=== PATIENT | female | born 1985 | race African-American/Black ===

== ENCOUNTER 2016-11-16 11:05 | Emergency (ER) | payer SELFPAY | END 2016-11-16 11:18 | disposition left against medical advice (07) | LOC: ERS 11:05 | DX: Z53.21 Procedure and treatment not carried out due to patient leaving prior to being seen by health care provider (principal) ==

== ENCOUNTER 2017-01-20 16:52 | Emergency (ER) | payer SELFPAY, OTHER ==
[2017-01-20] MEDS ORDERED: Ketorolac Tromethamine 60 MG/2 ML VIAL ONE (17:47)
[2017-01-20 17:48] LABS: Bilirubin Negative (Negative); Blood, Urine Small (Negative); Glucose, Urine (Dipstick) >=1000 mg/dL (Negative); Ketone, Urine Negative (Negative); Nitrite Negative (Negative); Protein, Urine (Dipstick) 30 mg/dL (Neg-Trace); Urobilinogen 0.2 mg/dL (0.2-1.0)
[2017-01-20 17:51] LABS: Bacteria/HPF 1+ HPF (None Seen); Hyaline Casts/LPF 0-3 HYALINE CAST LPF (0-3 Hyaline); Squamous Epithelial 0-3 HPF (0-3); WBC/HPF 0-3 HPF (0-3)
[2017-01-20 18:29] LABS: #Eosinphils 0.2 thou/uL (0.0-0.7); #Lymphocytes 2.9 thou/uL (1.20-3.40); #Monocytes 0.5 thou/uL (0.11-0.59); #Neutrophils 5.8 thou/uL (1.40-6.50); %Basophils 0.5 % (0.0-1.0); %Eosinophils 1.7 % (0.0-10.0); %Monocytes 5.5 % (0.0-10.0); Hematocrit 42.6 % (36.0-47.0); Mean Platelet Volume 7.6 fL (7.4-10.4); Red Blood Cell (RBC) Count 4.69 mill/uL (4.20-5.40); White Blood Cell (WBC) Count 9.4 thou/uL (4.8-10.8)
[2017-01-20 18:48] LABS: ALT (SGPT) 18 U/L (8-55); AST (SGOT) 14 U/L (5-34); Alkaline Phosphatase 117 U/L (40-150); Anion Gap 11 mmol/L (10-20); BUN (Urea Nitrogen) 8 mg/dL (7.0-18.7); Bilirubin, Total 0.3 mg/dL (0.2-1.2); Calc. Creatinine Clearance 0 mL/min (70-130); Calcium 9.7 mg/dL (7.8-10.44); Carbon Dioxide 25 mmol/L (22-29); Chloride 102 mmol/L (98-107); Estimated GFR-MDRD 90; Globulin 3.3 g/dL (2.4-3.5); Protein, Total 7.4 g/dL (6.0-8.3)
== END 2017-01-20 19:44 | disposition home or self-care (01) ==
LOC: ERS 16:52
DX: R31.9 Hematuria, unspecified (principal); R80.9 Proteinuria, unspecified; R10.30 Lower abdominal pain, unspecified; E11.9 Type 2 diabetes mellitus without complications; F17.210 Nicotine dependence, cigarettes, uncomplicated; Z79.84 Long term (current) use of oral hypoglycemic drugs
CPT/HCPCS: 36415; 80053; 81003; 81015; 81025; 85025; 96372; J1885

== ENCOUNTER 2017-03-01 22:49 | Emergency (ER) | payer OTHER, SELFPAY ==
[2017-03-01 23:25] LABS: Bilirubin Negative (Negative); Blood, Urine Small (Negative); Clarity CLEAR (Clear); Glucose, Urine (Dipstick) >=1000 mg/dL (Negative); Leukocyte Negative (Negative); Nitrite Negative (Negative); Protein, Urine (Dipstick) Negative (Neg-Trace); Specific Gravity, Urine 1.034 (1.002-1.036); pH, Urine 6.5 (5.0-9.0)
[2017-03-01 23:26] LABS: Bacteria/HPF Rare-Few HPF (None Seen); Hyaline Casts/LPF 0-3 HYALINE CAST LPF (0-3 Hyaline); Squamous Epithelial 0-3 HPF (0-3); WBC/HPF 0-3 HPF (0-3)
[2017-03-01 23:36] LABS: #Basophils 0.1 thou/uL (0.0-0.2); #Eosinphils 0.1 thou/uL (0.0-0.7); #Lymphocytes 3.1 thou/uL (1.20-3.40); #Monocytes 0.5 thou/uL (0.11-0.59); #Neutrophils 4.5 thou/uL (1.40-6.50); %Basophils 0.8 % (0.0-1.0); %Eosinophils 1.6 % (0.0-10.0); %Lymphocytes 37.5 % (21.0-51.0); %Monocytes 5.9 % (0.0-10.0); %Neutrophils 54.2 % (42.0-75.0); Hemoglobin 13.9 g/dL (12.0-16.0); Mean Platelet Volume 7.7 fL (7.4-10.4); Platelet Count 300 thou/uL (130-400); Red Blood Cell (RBC) Count 4.63 mill/uL (4.20-5.40); White Blood Cell (WBC) Count 8.2 thou/uL (4.8-10.8)
[2017-03-01 23:49] LABS: ALT (SGPT) 19 U/L (8-55); AST (SGOT) 17 U/L (5-34); Albumin 3.9 g/dL (3.5-5.0); Alkaline Phosphatase 117 U/L (40-150); Anion Gap 15 mmol/L (10-20); BUN (Urea Nitrogen) 11 mg/dL (7.0-18.7); Bilirubin, Total 0.2 mg/dL (0.2-1.2); Calc. Creatinine Clearance 0 mL/min (70-130); Calcium 9.7 mg/dL (7.8-10.44); Carbon Dioxide 22 mmol/L (22-29); Chloride 101 mmol/L (98-107); Estimated GFR-MDRD 71; Globulin 3.7 g/dL (2.4-3.5); Glucose 369 mg/dL (70-105); Potassium 4.1 mmol/L (3.5-5.1); Protein, Total 7.6 g/dL (6.0-8.3); Sodium 134 mmol/L (136-145)
[2017-03-02] MEDS ORDERED: Ketorolac Tromethamine 30 MG/ML VIAL ONE (01:18)
== END 2017-03-02 01:29 | disposition home or self-care (01) ==
LOC: ERS 22:49
DX: R10.9 Unspecified abdominal pain (principal); E11.65 Type 2 diabetes mellitus with hyperglycemia; F17.210 Nicotine dependence, cigarettes, uncomplicated
CPT/HCPCS: 36415; 36416; 80053; 81003; 81015; 85025; 96372; 99406; J1885

== ENCOUNTER 2017-11-13 08:23 | Emergency (ER) | payer OTHER ==
[2017-11-13] MEDS ORDERED: Ketorolac Tromethamine 60 MG/2 ML VIAL ONE (09:31)
== END 2017-11-13 10:02 | disposition home or self-care (01) ==
LOC: ERS 08:23
DX: M54.5 Low back pain (principal); E11.9 Type 2 diabetes mellitus without complications; F17.210 Nicotine dependence, cigarettes, uncomplicated; Z79.4 Long term (current) use of insulin
CPT/HCPCS: 96372; J1885

== ENCOUNTER 2018-04-20 14:58 | Observation (INO) | payer OTHER ==
[2018-04-20 15:26] LABS: #Basophils 0.1 thou/uL (0.0-0.2); #Eosinphils 0.2 thou/uL (0.0-0.7); #Lymphocytes 3.8 thou/uL (1.20-3.40); #Monocytes 0.6 thou/uL (0.11-0.59); %Basophils 0.6 % (0.0-1.0); %Eosinophils 1.5 % (0.0-10.0); %Lymphocytes 35.5 % (21.0-51.0); %Monocytes 5.8 % (0.0-10.0); %Neutrophils 56.6 % (42.0-75.0); Mean Corpuscular HGB CONC 32.9 g/dL (32.0-36.0); Mean Corpuscular Hemoglobin 29.4 pg (27.0-31.0); Mean Corpuscular Volume 89.3 fL (78.0-98.0); Mean Platelet Volume 7.4 fL (7.4-10.4); Platelet Count 356 thou/uL (130-400); Red Blood Cell (RBC) Count 4.43 mill/uL (4.20-5.40); White Blood Cell (WBC) Count 10.6 thou/uL (4.8-10.8)
[2018-04-20 15:45] LABS: ALT (SGPT) 17 U/L (8-55); AST (SGOT) 14 U/L (5-34); Albumin 4.3 g/dL (3.5-5.0); Alkaline Phosphatase 105 U/L (40-150); Anion Gap 9 mmol/L (10-20); BUN (Urea Nitrogen) 12 mg/dL (7.0-18.7); Bilirubin, Total 0.2 mg/dL (0.2-1.2); CK (CPK) 89 U/L (29-168); Calc. Creatinine Clearance 0 mL/min (70-130); Carbon Dioxide 28 mmol/L (22-29); Chloride 102 mmol/L (98-107); Estimated GFR-MDRD Greater than 90; Globulin 2.7 g/dL (2.4-3.5); Glucose 189 mg/dL (70-105); Lipase 40 U/L (8-78); Potassium 4.1 mmol/L (3.5-5.1); Sodium 135 mmol/L (136-145)
--- NOTE | 2018-04-20 16:02 | RAD ---
CHEST ONE VIEW: HISTORY: Chest pain. COMPARISON: None. FINDINGS: The lungs are clear. No pneumothorax or effusion. The cardiac silhouette and mediastinal contour ar e within normal limits. IMPRESSION: No acute intrathoracic abnormality. POS: [facility]
[2018-04-20] MEDS ORDERED: Nitroglycerin 0.4 MG TAB 1 EACH ONE (16:55)
[2018-04-20] MEDS ORDERED: Aspirin 325 MG TAB ONE ×2 (16:55→17:06)
--- NOTE | 2018-04-20 17:13 | ULT ---
RIGHT UPPER QUADRANT ULTRASOUND: 04/20/18 HISTORY: Right upper quadrant pain. Real time imaging of the right upper quadrant demonstrates a normal appearing gallbladder. The common duct is in the 2 mm range. The visualized liver parenchyma shows no focal findings. The liver measur es 15 cm in length. It does appear to be of mild increased echogenicity. The pancreas is partially obscured. Right kidney is within normal limits of size and not obstructed. IMPRESSION: No evidence of gallstones. Suggestion of possible mild fatty change of the liver. POS: [facility]
[2018-04-20] MEDS ORDERED: Ondansetron PF 4 MG/2 ML Vial IVP PRN (18:59)
[2018-04-20] MEDS ORDERED: Ondansetron ODT 4 MG TAB SL PRN (18:59)
[2018-04-20 19:03] LABS: Troponin I Less than 0.010 ng/mL (< 0.028)
[2018-04-20 20:11] VITALS: BMI 31.8
[2018-04-20] MEDS ORDERED: Dextrose 50% Abboject 50 ML SYRINGE SLOW IVP PRN (20:38)
[2018-04-20] MEDS ORDERED: Dextrose 5% in Water 1,000 ML IV PRN (20:38)
[2018-04-20] MEDS: HumaLOG 300 UNITS/3 ML VIAL SC PRN (21:41)
[2018-04-20 21:50] LABS: Troponin I Less than 0.010 ng/mL (< 0.028)
--- NOTE | 2018-04-21 03:40 | HP ---
PRIMARY CARE DOCTOR: Dr. Maria Eugenia Soto. CODE STATUS: Full code. TIME OF EVALUATION: 8 p.m. CHIEF COMPLAINT: Chest pain. HISTORY OF PRESENT ILLNESS: A 33-year-old female patient with past medical history of diabetes, presenting to ER complaining of chest pain, it was on the left side. The patient has pain on and off for the past 2 days, when it is severe, to be 9/ 10 with no clear triggers, no alleviating factors, although the patient reported occasionally the pain is mostly in the right upper quadrant and seems to be like a colicky like pain. Symptoms started insidiously and has been slowly getting worse. REVIEW OF SYSTEMS: CONSTITUTIONAL: No fever, chills, or generalized weakness. RESPIRATORY: No cough, sputum production, or shortness of breath. CARDIOVASCULAR: The patient has chest pain as described in the HPI. No palpitation. GASTROINTESTINAL: No nausea. No vomiting, diarrhea, or abdominal pain. [employer]: No dizziness, headache, or feeling lightheaded. GENITOURINARY: No burning on urination. EXTREMITIES: No leg swelling. All other systems were reviewed and negative except for the findings mentioned above. PAST MEDICAL HISTORY: The patient has a history of diabetes type 2. SURGICAL HISTORY: Lumpectomy of the left breast, x2, and hysterectomy. PSYCH HISTORY: No previous psych history. SOCIAL HISTORY: The patient is lives at home, drinks socially twice a month. No drug use. Smoke cigarettes on a daily basis. KNOWN ALLERGIES: No known drug allergies. FAMILY HISTORY: Reviewed and noncontributory for current presentation REPORTED MEDICATIONS: 1. Metformin. 2. Lantus. 3. Naprosyn. PHYSICAL EXAMINATION: VITAL SIGNS: On presentation, blood pressure was 130/80 with heart rate 84, respiratory rate was 18, pain was 9/10, oxygen saturation was 100 on room air. GENERAL APPEARANCE: She is alert, oriented, not in acute distress. HEENT: Eyes, normal conjunctivae. Moist oral mucosa. Anicteric. No JVD. RESPIRATORY: Bilateral air entry. No rales. No wheezes. Symmetric expansion. CARDIOVASCULAR: Normal rate, regular rhythm. No murmurs. No gallops. No edema. ABDOMEN: Soft. Normal bowel sounds. MUSCULOSKELETAL: Baseline range of motion and strength. No tenderness. SKIN: Warm and intact. No pallor. No rash. No redness. Peripheral pulses are present. Capillary refill seems to intact. NEUROLOGIC: No evidence of any new focal weakness. Baseline speech. Cranial nerves seems to be intact. PSYCHIATRIC: The patient is in good mood. No anxiety. Optimal judgment. LABORATORY DATA: EKG was reviewed. The patient has normal sinus rhythm with a rate of 90, WV 152, QRS 78, and QT corrected 164. Chest x-ray was reviewed. The patient has no acute intrathoracic abnormalities. An abdominal ultrasound was done. The patient has no evidence of gallstone, suggestion of possible mild fatty changes of the liver. Labs were done. The patient has white count 10.6, hemoglobin 13, MCV 89, platelet count 259. Chemistry; sodium 135, potassium 4.1, chloride 102, carbon dioxide 20, anion gap 9, BUN 12, creatinine 0.84, GFR was greater than 90, glucose _ the repeat one 338, calcium 10.0, total bilirubin 0.2. LFTs were negative. Troponin was negative x3. Albumin 4.3, lipase 40. ASSESSMENT AND PLAN: The patient will be placed in the hospital with following medical problems: 1. Chest pain, rule out acute coronary syndrome. The patient had three normal troponins and send the patient for stress test in the morning. This is to be discussed with therapist. The patient has been diabetic for 12 years, monitor on tele. 2. Uncontrolled diabetes. The patient has blood sugar came up to 338. We will reconcile home medications. Place the patient on sliding scale. 3. Deep venous thrombosis prophylaxis. 4. Hyponatremia with sodium 135, this is mild, no need for any acute intervention at this point. Job ID: [id number] [facility]
[2018-04-21] MEDS: Acetaminophen 325 MG TAB PO PRN ×2 (04:22→14:19)
[2018-04-21 04:59] LABS: #Eosinphils 0.1 thou/uL (0.0-0.7); #Lymphocytes 2.9 thou/uL (1.20-3.40); #Monocytes 0.6 thou/uL (0.11-0.59); #Neutrophils 4.6 thou/uL (1.40-6.50); %Basophils 0.5 % (0.0-1.0); %Eosinophils 1.7 % (0.0-10.0); %Lymphocytes 35.2 % (21.0-51.0); %Monocytes 6.8 % (0.0-10.0); %Neutrophils 55.8 % (42.0-75.0); Hemoglobin 13.2 g/dL (12.0-16.0); Mean Corpuscular HGB CONC 31.9 g/dL (32.0-36.0); Mean Corpuscular Hemoglobin 29.2 pg (27.0-31.0); Mean Corpuscular Volume 91.7 fL (78.0-98.0); Mean Platelet Volume 7.5 fL (7.4-10.4); Platelet Count 329 thou/uL (130-400); RBC Distribution Width 12.9 % (11.5-14.5); Red Blood Cell (RBC) Count 4.51 mill/uL (4.20-5.40); White Blood Cell (WBC) Count 8.3 thou/uL (4.8-10.8)
[2018-04-21 05:23] LABS: Anion Gap 10 mmol/L (10-20); BUN (Urea Nitrogen) 11 mg/dL (7.0-18.7); Calc. Creatinine Clearance 139 mL/min (70-130); Calcium 8.9 mg/dL (7.8-10.44); Carbon Dioxide 25 mmol/L (22-29); Chloride 104 mmol/L (98-107); Estimated GFR-MDRD Greater than 90; Glucose 287 mg/dL (70-105); Potassium 4.4 mmol/L (3.5-5.1); Sodium 135 mmol/L (136-145)
[2018-04-21] MEDS ORDERED: Lisinopril 2.5 MG TAB PO SCH (09:00)
[2018-04-21] MEDS ORDERED: Enoxaparin Sodium 40 MG/0.4 ML SYRINGE SC SCH ×2 (09:00)
[2018-04-21] MEDS ORDERED: Aspirin 325 mg Enteric Coated Tablet PO SCH (09:00)
[2018-04-21] MEDS ORDERED: ISOVUE-370 76%-LOCM 1 ML ONE (10:14)
[2018-04-21] MEDS: HumaLOG 300 UNITS/3 ML VIAL SC PRN ×2 (12:46→17:23)
--- NOTE | 2018-04-21 17:36 | PDOC.PN ---
- Subjective Encounter Start Date: 04/21/18 Encounter Start Time: 11:00 Pt seen for followup re; chest pain. Reports on and off right-sided chest pain. - Objective Resuscitation Status - Order Detail: 04/20/18 20:38 Resuscitation Status Routine Resuscitation Status: FULL: Full Resuscitation Vital Signs & Weight: Vital Signs (12 hours) Temp Pulse Resp BP Pulse Ox 04/21/18 15:56 97.6 F 81 16 117/74 100 04/21/18 11:20 98.0 F 78 16 107/82 97 04/21/18 07:36 97.9 F 80 16 118/61 96 Weight Weight 185 lb 12.8 oz I&O: 04/20/18 04/21/18 04/22/18 06:59 06:59 06:59 Intake Total 750 Balance 750 Result Diagrams: 04/21/18 04:31 04/21/18 04:31 Additional Labs: Accuchecks 04/21/18 04/21/18 04/20/18 17:01 11:24 21:00 POC Glucose 237 H 271 H 338 H Phys Exam - Physical Examination Obese HEENT: moist MMs Neck: supple Respiratory: clear to auscultation bilateral Cardiovascular: RRR Gastrointestinal: soft Neurological: moves all 4 limbs Psychiatric: normal affect Dx/Plan (1) Chest pain Code(s): R07.9 - CHEST PAIN, UNSPECIFIED Status: Acute Comment: pt had normal stress test; check d-dimer to r/o PE (2) Hyperglycemia due to type 2 diabetes mellitus Code(s): E11.65 - TYPE 2 DIABETES MELLITUS WITH HYPERGLYCEMIA Status: Chronic Comment: resume lantus insulin - Plan * . Review of Systems - Review of Systems Respiratory: negative: Cough, Shortness of Breath, SOB with Excertion, Pleuritic Pain, Wheezing Cardiovascular: chest pain. negative: palpitations, orthopnea, paroxysmal nocturnal dyspnea, edema, light headedness - Medications/Allergies Allergies/Adverse Reactions: Allergies Allergy/AdvReac Type Severity Reaction Status Date / Time No Known Allergies Allergy Verified 04/20/18 20:07 Medications: Current Medications Acetaminophen (Tylenol) 650 mg PO Q4H PRN PRN Reason: Headache/Fever or Pain Stop: 04/24/18 05:25 Last Admin: 04/21/18 14:19 Dose: 650 mg Aspirin (Ecotrin) 325 mg PO DAILY [facility] Last Admin: 04/21/18 09:25 Dose: Not Given Dextrose/Water (Dextrose 50%) 25 gm SLOW IVP PRN PRN PRN Reason: Hypoglycemia Enoxaparin Sodium (Lovenox) 40 mg SC 0900 [facility] Last Admin: 04/21/18 09:25 Dose: Not Given Glucagon (Glucagon) 1 mg IM PRN PRN PRN Reason: Hypoglycemia Dextrose/Water (D5w) 1,000 mls @ 0 mls/hr IV .Q0M PRN PRN Reason: Hypoglycemia Insulin Human Lispro (Humalog) 0 units SC .MILD SLIDING SCALE PRN PRN Reason: Mild Correctional Scale Last Admin: 04/21/18 17:23 Dose: 3 unit Lisinopril (Zestril) 2.5 mg PO DAILY [facility] Last Admin: 04/21/18 09:26 Dose: Not Given Ondansetron HCl (Zofran) 4 mg IVP Q6H PRN PRN Reason: Nausea/Vomiting Stop: 04/24/18 05:25 Ondansetron HCl (Zofran Odt) 4 mg SL Q6H PRN PRN Reason: Nausea/Vomiting Stop: 04/25/18 05:25 Sodium Chloride (Flush - Normal Saline) 10 ml IVF PRN PRN PRN Reason: Saline Flush Stop: 04/25/18 05:25
[2018-04-21 18:48] VITALS: BP 131/75; TEMP 98.2
--- NOTE | 2018-04-21 19:58 | CT ---
CTA CHEST WITH CONTRAST: 04/21/18 Multiple axial tomograms obtained through the chest following pulmonary angio protocol with multiplan ar reconstruction and 3D postprocessing. INDICATIONS: Chest pain. Shortness of breath. Assess for pulmonary embolus. Pulmonary arteries show adequate opacification. There is no evidence of pulmonary embolus. The lungs appear clear. No infiltrate identified. Mediastinum unremarkable. IMPRESSION: 1. No evidence of pulmonary embolus. 2. No acute lung process identified. POS: [facility]
[2018-04-21] MEDS ORDERED: Insulin Glargine 20 UNITS in Pre-Filled Syringe SC SCH (21:00)
--- NOTE | 2018-04-22 10:50 | DIS ---
DATE OF ADMISSION: 04/20/2018 DATE OF DISCHARGE: 04/21/2018 PRIMARY CARE PROVIDER: Dr. Maria Eugenia Soto. DISCHARGE DIAGNOSES: 1. Chest pain. 2. Most likely musculoskeletal etiology for chest pain. 3. Poorly controlled diabetes mellitus type 2. CONDITION: Condition of the patient on the day of discharge: Stable. I assessed Ms. Headley on the day of discharge. Please refer to my daily progress note for details regarding this [id number] encounter. HOSPITAL COURSE: Ms. Headley is a pleasant 33-year-old lady, who was admitted to [facility] on April 20, 2017, for chest pain. Please refer to Dr. Puente's history and physical note dated April 21, 2018, for further details. She had normal EKG stress test. Her D-dimer was elevated at 1.83. However, CT angiogram of the chest did not show any pulmonary embolism. She also had poorly controlled blood sugars. She is advised to follow up with her primary care provider for management of diabetes mellitus. She is advised to start metformin after 48 hours, since she received contrast for CT angiogram of the chest. Advised to resume Lantus insulin at 20 units at bedtime. She is also advised to check her blood sugars 3 times a day and shows the readings to her primary care provider. Many thanks for allowing me to participate in your patient's care. Please feel free to contact me with any questions or concerns. LABORATORY DATA: On the day of discharge, she has sodium 135, potassium 4.4, and creatinine 0.76. White count 8300, hemoglobin 13.2, and platelet count 329,000. DISCHARGE DESTINATION: Home. Job ID: [id number]
== END 2018-04-21 19:35 | disposition home or self-care (01) ==
LOC: ERS 14:58 → 2SW 17:45
PROVIDERS: ADMIT Emergency Medicine; ATTEND Emergency Medicine
DX: R07.9 Chest pain, unspecified (principal); R10.11 Right upper quadrant pain; E11.9 Type 2 diabetes mellitus without complications; F17.210 Nicotine dependence, cigarettes, uncomplicated; E87.1 Hypo-osmolality and hyponatremia; Z79.84 Long term (current) use of oral hypoglycemic drugs; Z79.899 Other long term (current) drug therapy
CPT/HCPCS: 36415; 36416; 71045; 71275; 76705; 80048; 80053; 82550; 83690; 84484; 85025; 85379; 90471; 90732; 93005; 93017; 94760; G0009; G0378; J1825; Q9966

== ENCOUNTER 2019-01-25 16:38 | Emergency (ER) | payer OTHER, SELFPAY | END 2019-01-25 18:32 | disposition home or self-care (01) | LOC: ERS 16:38 | DX: K64.4 Residual hemorrhoidal skin tags (principal); E11.9 Type 2 diabetes mellitus without complications; F17.210 Nicotine dependence, cigarettes, uncomplicated; Z79.84 Long term (current) use of oral hypoglycemic drugs | CPT/HCPCS: 99283 ==

== ENCOUNTER 2019-12-27 18:11 | Emergency (ER) | payer SELFPAY | END 2019-12-27 23:05 | disposition left against medical advice (07) | LOC: ERS 18:11 | DX: Z53.21 Procedure and treatment not carried out due to patient leaving prior to being seen by health care provider (principal) ==

== ENCOUNTER 2020-01-13 10:09 | Emergency (ER) | payer SELFPAY ==
[2020-01-13 17:00] LABS: SARS-CoV-2 MS2 Positive; SARS-CoV-2 N Gene Negative; SARS-CoV-2 S Gene Negative; SARS-CoV-2 by NAA Not Detected (NotDetected); SARS-CoV-2 orf1ab Negative
== END 2020-01-13 10:30 | disposition home or self-care (01) ==
LOC: ERS 10:09
DX: Z20.828 Contact with and (suspected) exposure to other viral communicable diseases (principal)
CPT/HCPCS: 87635; 99283; U0003

== ENCOUNTER 2020-03-08 22:24 | Emergency (ER) | payer SELFPAY ==
--- NOTE | 2020-03-30 21:00 | EKG ---
Test Reason : DIZZINESS Blood Pressure : / mmHG Vent. Rate : 073 BPM Atrial Rate : 073 BPM P-R Int : 152 ms QRS Dur : 080 ms QT Int : 408 ms P-R-T Axes : 035 034 065 degrees QTc Int : 449 ms Normal sinus rhythm Normal ECG Confirmed by WILLIAM PERSAUD ([id number]), film or videotape editor TELLY GODDARD ([id number]) on 03/30/2020 9:00:08 PM Referred By: Confirmed By:WILLIAM PERSAUD
== END 2020-03-08 23:14 | disposition left against medical advice (07) ==
LOC: ERS 22:24
DX: Z53.21 Procedure and treatment not carried out due to patient leaving prior to being seen by health care provider (principal)
CPT/HCPCS: 36416; 93005

== ENCOUNTER 2020-06-21 14:45 | Outpatient (CLI) | payer OTHER ==
[2020-06-21 16:41] LABS: Anion Gap 13 mmol/L (10-20); BUN (Urea Nitrogen) 13 mg/dL (7.0-18.7); Calc. Creatinine Clearance 0 mL/min (70-130); Calcium 9.1 mg/dL (7.8-10.44); Carbon Dioxide 22 mmol/L (22-29); Chloride 104 mmol/L (98-107); Glucose 241 mg/dL (70-105); Sodium 135 mmol/L (136-145)
[2020-06-22 01:13] LABS: SARS-CoV-2 PCR by NAA Not Detected (NotDetected)
== END 2020-06-21 14:46 | disposition home or self-care (01) ==
LOC: LABBT 14:45
PROVIDERS: ATTEND Neurological Surgery
DX: Z01.818 Encounter for other preprocedural examination (principal); Z20.822 Contact with and (suspected) exposure to COVID-19; S32.009K Unspecified fracture of unspecified lumbar vertebra, subsequent encounter for fracture with nonunion; M54.16 Radiculopathy, lumbar region
CPT/HCPCS: 80048; 87635; 93005; 93010; U0003; U0005

== ENCOUNTER 2020-06-26 07:59 | Day surgery (SDC) | payer OTHER ==
[2020-06-25 10:51] VITALS: BMI 29.0
[2020-06-26] MEDS ORDERED: EPINEPHrine 1 MG/ML AMP ONE (09:13)
[2020-06-26] MEDS ORDERED: Thrombin 5000 UNITS/5 ML VIAL ONE (09:13)
[2020-06-26] MEDS ORDERED: Bupivacaine PF 0.5% 30 ML VIAL ONE (09:13)
[2020-06-26] MEDS ORDERED: Fentanyl 250 MCG/5 ML VIAL ONE (10:39)
[2020-06-26] MEDS ORDERED: Ondansetron PF 4 MG/2 ML Vial ONE (10:54)
[2020-06-26] MEDS ORDERED: PHENYLEPHRINE-NS 100 MCG/ML 10 ML SYRINGE ONE (10:54)
[2020-06-26] MEDS ORDERED: Glycopyrrolate 0.2 MG/ML 5 ML SYRINGE ONE (10:54)
[2020-06-26] MEDS ORDERED: PROPOFOL 200 MG/20 ML VIAL ONE (10:54)
[2020-06-26] MEDS ORDERED: Dexamethasone 20 MG/5 ML VIAL ONE (10:54)
[2020-06-26] MEDS ORDERED: Rocuronium Bromide 10 MG/ML (10ML VIAL) ONE (10:54)
[2020-06-26] MEDS ORDERED: Lidocaine 1% PF 5 ML VIAL ONE (10:54)
[2020-06-26] MEDS ORDERED: Fentanyl 100 MCG/2 ML VIAL ONE ×3 (13:22→14:23)
[2020-06-26] MEDS ORDERED: HYDROcodone/Acetaminophen 10/325 mg Tablet ONE (14:40)
== END 2020-06-26 17:05 | disposition home or self-care (01) ==
LOC: SDC 07:59
PROVIDERS: ATTEND Neurological Surgery
PROC: 0SG3071 Fusion of Lumbosacral Joint with Autologous Tissue Substitute, Posterior Approach, Posterior Column, Open Approach (ICD-10-PCS; principal; 2020-06-26)
DX: M54.16 Radiculopathy, lumbar region (principal); S32.009A Unspecified fracture of unspecified lumbar vertebra, initial encounter for closed fracture; E11.9 Type 2 diabetes mellitus without complications; Z79.4 Long term (current) use of insulin
CPT/HCPCS: 36416; 76000; C1713; C1768; J0171; J0690; J1100; J2405; J2704; J3010; S0020

== ENCOUNTER 2021-01-26 07:51 | Emergency (ER) | payer OTHER, SELFPAY ==
[2021-01-26] MEDS ORDERED: Lidocaine 1% w/Epinephrine 1:100K 20 ML VIAL ONE (08:15)
[2021-01-26] MEDS ORDERED: Lidocaine 1% (PF) 30 ML VIAL ONE (08:29)
== END 2021-01-26 09:10 | disposition home or self-care (01) ==
LOC: ERS 07:51
DX: M70.22 Olecranon bursitis, left elbow (principal); E11.9 Type 2 diabetes mellitus without complications; E78.00 Pure hypercholesterolemia, unspecified; F17.210 Nicotine dependence, cigarettes, uncomplicated; Z79.84 Long term (current) use of oral hypoglycemic drugs
CPT/HCPCS: 10140; J2001

== ENCOUNTER 2021-06-26 13:21 | Outpatient (CLI) | payer OTHER | END 2021-06-26 13:22 | disposition home or self-care (01) | LOC: TBSIIMAG 13:21 | PROVIDERS: ATTEND Neurological Surgery | DX: M54.16 Radiculopathy, lumbar region (principal); Z98.890 Other specified postprocedural states | CPT/HCPCS: 72158 ==

== ENCOUNTER 2021-08-24 23:10 | Emergency (ER) | payer OTHER ==
[2021-08-24 23:43] LABS: #Basophils 0.1 thou/uL (0.0-0.2); #Eosinphils 0.2 thou/uL (0.0-0.7); #Lymphocytes 3.3 thou/uL (1.20-3.40); #Monocytes 0.7 thou/uL (0.11-0.59); #Neutrophils 6.3 thou/uL (1.40-6.50); %Basophils 0.8 % (0.0-1.0); %Eosinophils 1.8 % (0.0-10.0); %Lymphocytes 31.2 % (21.0-51.0); %Monocytes 6.6 % (0.0-10.0); %Neutrophils 59.6 % (42.0-75.0); Mean Corpuscular HGB CONC 32.3 g/dL (32.0-36.0); Mean Corpuscular Hemoglobin 30.2 pg (27.0-31.0); Mean Corpuscular Volume 93.5 fL (78.0-98.0); Mean Platelet Volume 7.3 fL (7.4-10.4); Platelet Count 281 thou/uL (130-400); RBC Distribution Width 13.4 % (11.5-14.5); Red Blood Cell (RBC) Count 4.31 mill/uL (4.20-5.40); White Blood Cell (WBC) Count 10.6 thou/uL (4.8-10.8)
[2021-08-25 00:01] LABS: ALT (SGPT) 13 U/L (8-55); AST (SGOT) 13 U/L (5-34); Albumin 4.1 g/dL (3.5-5.0); Alkaline Phosphatase 88 U/L (40-110); Anion Gap 16 mmol/L (10-20); BUN (Urea Nitrogen) 11 mg/dL (7.0-18.7); Bilirubin, Total 0.3 mg/dL (0.2-1.2); Calc. Creatinine Clearance 0 mL/min (70-130); Calcium 9.3 mg/dL (7.8-10.44); Carbon Dioxide 21 mmol/L (22-29); Chloride 102 mmol/L (98-107); Estimated GFR 70; Globulin 2.6 g/dL (2.4-3.5); Glucose 360 mg/dL (70-105); Protein, Total 6.7 g/dL (6.0-8.3); Sodium 135 mmol/L (136-145)
== END 2021-08-25 01:06 | disposition left against medical advice (07) ==
LOC: ERS 23:10
DX: Z53.21 Procedure and treatment not carried out due to patient leaving prior to being seen by health care provider (principal)
CPT/HCPCS: 36415; 71045; 80053; 83690; 84484; 85025; 93005